=== PATIENT | female | born 1990 | race Caucasian/White ===

== ENCOUNTER 2019-01-15 05:39 | Inpatient (IN) | payer OTHER ==
[~2019-01-15 05:39] MED LIST: Nalbuphine 10 MG/1 ML Vial IVPUSH PRN; Sodium Chloride 0.9% 10 ML Syringe FLUSH PRN
[2019-01-15] MEDS ORDERED: Metoclopramide 10 MG/2 ML SDV IVPUSH ONE (06:00)
[2019-01-15] MEDS ORDERED: Citric Acid/Sodium Citrate Solution 30 ML Cup PO ONE (06:00)
[2019-01-15] MEDS: Lactated Ringers 1,000 ML IV SCH ×2 (06:45→09:05)
--- NOTE | 2019-01-15 06:47 | PCM.LDHP ---
L&D History of Present Illness - General Date of Service: 01/15/19 Admit Problem/Dx: Patient Status Order with Admit Dx/Problem 01/15/19 04:38 Patient Status [ADT] Routine Admission Diagnosis/Problem Admission Diagnosis/Problem Source of Information: Patient History Limitations: Reports: No Limitations - History of Present Illness Introduction:: Patient is a 28 y/o at 37 0/7 wks who presents for planned . Patient history notable for last affected by severe preeclampsia requiring IOL at 37 weeks. IOL went well with . However, patient with unknown history of HSV and at 4 weeks of life her son Jerome from HSV encephalitis. This has had development of gestational HTN. Has elected for PLTCS given she had no signs/symptoms of HSV she can recall with her last delivery or ever in the past. Feeling well today. No headaches, vision changes, or RUQ pain - Related Data Allergies/Adverse Reactions: Allergies Allergy/AdvReac Type Severity Reaction Status Date / Time No Known Allergies Allergy Verified 01/10/19 13:44 Home Medications: Home Meds Acyclovir 400 mg PO DAILY 01/10/19 [History] Mv-Mn/Iron/FA/Herbal/Digestive [ One Tablet] 1 tab PO DAILY 01/10/19 [ History] Past Medical History Gastrointestinal History: Reports: Pancreatitis HOSPITALITY HOST History: Reports: , Spontaneous : 4 Para: 1 (0 living children) LMP (Approximate): - Infectious Disease History Infectious Disease History: Reports: Herpes - Past Surgical History Musculoskeletal Surgical History: Reports: Other (See Below) (cyst excision - left arm) Social & Family History - Tobacco Use Smoking Status *Q: Current Every Day Smoker - Alcohol Use Alcohol Use History: No - Recreational Drug Use Recreational Drug Use: No Drug Use in Last 12 Months: No Recreational Drug Use Comment: Remote history - last 2013 H&P Review of Systems - Review of Systems: Review Of Systems: See Below General: Reports: No Symptoms Pulmonary: Reports: No Symptoms Cardiovascular: Reports: No Symptoms Gastrointestinal: Reports: No Symptoms Genitourinary: Reports: No Symptoms Musculoskeletal: Reports: No Symptoms Psychiatric: Reports: No Symptoms Neurological: Reports: No Symptoms L&D Exam - Exam Exam: See Below - OB Specific Contraction Intensity: Irritability Movement: Active Heart Tones: Present Heart Tones per Min: 140 Heart Rate (FHR) Variability: Moderate (6-25 bmp) - Exam General: Alert, Oriented, Cooperative Lungs: Clear to Auscultation, Normal Respiratory Effort Cardiovascular: Regular Rate, Regular Rhythm GI/Abdominal Exam: Soft, Non-Tender Genitourinary: Normal external exam Extremities: Normal Inspection Skin: Warm, Dry, Intact - Patient Data Lab Results Last 24 hrs: Laboratory Results - last 24 hr 01/15/19 Range/Units 05:57 WBC 12.98 H (3.98-10.04) K/mm3 RBC 4.19 (3.98-5.22) M/mm3 Hgb 12.7 (11.2-15.7) gm/dl Hct 37.8 (34.1-44.9) % MCV 90.2 (79.4-94.8) fl MCH 30.3 (25.6-32.2) pg MCHC 33.6 (32.2-35.5) g/dl RDW Std Deviation 45.0 (36.4-46.3) fL Plt Count 156 L (182-369) K/mm3 MPV 11.6 (9.4-12.3) fl Neut % (Auto) 78.2 H (34.0-71.1) % Lymph % (Auto) 11.8 L (19.3-51.7) % [place] % (Auto) 8.7 (4.7-12.5) % Eos % (Auto) 0.5 L (0.7-5.8) Baso % (Auto) 0.1 (0.1-1.2) % Neut # (Auto) 10.16 H (1.56-6.13) K/mm3 Lymph # (Auto) 1.53 (1.18-3.74) K/mm3 [place] # (Auto) 1.13 H (0.24-0.36) K/mm3 Eos # (Auto) 0.06 (0.04-0.36) K/mm3 Baso # (Auto) 0.01 (0.01-0.08) K/mm3 Result Diagrams: 01/15/19 05:57 - Problem List (1) 37 weeks gestation of SNOMED Code(s): 13885944 ICD Code: Z3A.37 - 37 WEEKS GESTATION OF Status: Acute Current Visit: Yes (2) Gestational hypertension SNOMED Code(s): 293400371 ICD Code: O13.9 - GESTATIONAL HTN W/O SIGNIFICANT PROTEINURIA, UNSP TRIMESTER Status: Acute Current Visit: Yes Qualifiers: Trimester: third trimester Qualified Code(s): O13.3 - Gestational [ -induced] hypertension without significant proteinuria, third trimester (3) GBS (group B Streptococcus carrier), +RV culture, currently SNOMED Code(s): 7165382712333, 672953372, 4767593877990 ICD Code: O99.820 - STREPTOCOCCUS B CARRIER STATE COMPLICATING Status: Acute Current Visit: Yes Problem List Initiated/Reviewed/Updated: Yes Orders Last 24hrs: Active Orders 24 hr Category Date Time Status Patient Status [ADT] Routine ADT 01/15/19 04:38 Active Communication Order [RC] ROUTINE Care 01/15/19 04:38 Active Heart Tones [RC] PER UNIT ROUTINE Care 01/15/19 04:38 Active Non Stress Test [RC] PER UNIT ROUTINE Care 01/15/19 04:38 Active Peripheral IV Care [RC] . DIRECTED Care 01/15/19 04:42 Active Procedure Site Prep Instruct [RC] ASDIRECTED Care 01/15/19 04:38 Active Verify Patient Consent Obtain [RC] PER UNIT ROUTINE Care 01/15/19 04:38 Active Vital Signs [RC] PFP Care 01/15/19 04:38 Active RAPID PLASMA REAGIN,RPR [CHEM] Timed Lab 01/15/19 05:57 Received TYPE AND SCREEN [BBK] Timed Lab 01/15/19 05:57 Received Lactated Ringers [Ringers, Lactated] 1,000 ml Med 01/15/19 04:45 Active IV ASDIRECTED Nalbuphine [Nubain] Med 01/15/19 04:38 Active 10 mg IVPUSH Q2H PRN Oxytocin/Lactated Ringers [Pitocin in LR 10 Units/1,000 Med 01/15/19 07:30 Active ML] 10 unit in 1,000 ml IV ASDIRECTED Sodium Chloride 0.9% [Saline Flush] Med 01/15/19 04:38 Active 10 ml FLUSH ASDIRECTED PRN ceFAZolin [Ancef] 2 gm Med 01/15/19 07:00 Active Premix Bag 1 bag IV ONETIME Peripheral IV Insertion Adult [OM.PC] Routine Oth 01/15/19 04:38 Ordered Schedule Procedure [COMM] Per Unit Routine Oth 01/15/19 04:38 Ordered Resuscitation Status Routine Resus Stat 01/15/19 04:38 Ordered Medication Orders Cefazolin Sodium/Dextrose 2 gm (/ Premix) 50 mls @ 100 mls/hr IV ONETIME ONE Stop: 01/15/19 07:29 Lactated Ringer's (Ringers, Lactated) 1,000 mls @ 125 mls/hr IV ASDIRECTED [facility] Oxytocin/Lactated Ringer's (Pitocin In Lr 10 Units/1,000 Ml) 10 unit in 1,000 mls @ 100 mls/hr IV ASDIRECTED [facility]; Protocol Nalbuphine HCl (Nubain) 10 mg IVPUSH Q2H PRN PRN Reason: Pain Sodium Chloride (Saline Flush) 10 ml FLUSH ASDIRECTED PRN PRN Reason: Keep Vein Open Assessment/Plan Comment:: Admit for planned PLTCS * Labs * Yan FUENTES * Consent reviewed and signed * NPO
[2019-01-15] MEDS ORDERED: ceFAZolin 2 GM in Premix Bag 1 BAG IV ONE (07:00)
[2019-01-15] MEDS ORDERED: Morphine PF 10 MG/10 ML SDV ONE (07:14)
[2019-01-15] MEDS ORDERED: ceFAZolin 1 GM Vial ONE ×2 (07:14)
[2019-01-15] MEDS ORDERED: Phenylephrine 1% 10 MG/ML SDV ONE (07:14)
[2019-01-15] MEDS ORDERED: Lactated Ringers 1,000 ML ONE (07:19)
[2019-01-15] MEDS ORDERED: Oxytocin/Lactated Ringers 10 UNIT/1,000 ML BAG IV SCH (07:30)
--- NOTE | 2019-01-15 07:34 | PCM.PREANE ---
Preanesthetic Assessment - Procedure Proposed Procedure: C - section - Anesthesia/Transfusion/Family Hx Anesthesia History: Prior Anesthesia Without Reaction Family History of Anesthesia Reaction: No Transfusion History: No Prior Transfusion(s) - Review of Systems General: No Symptoms Pulmonary: No Symptoms Cardiovascular: Dyspnea on Exertion Gastrointestinal: No Symptoms Neurological: No Symptoms Other: Reports: None - Physical Assessment NPO Status Date: 01/14/19 NPO Status Time: 00:00 Vital Signs: Last Vital Signs Temp 37.4 C 01/15/19 07:02 Pulse 115 H 01/15/19 07:02 Resp 15 01/15/19 07:02 BP 141/92 H 01/15/19 07:02 Pulse Ox 97 01/15/19 07:02 Height: 1.65 m Weight: 75.75 kg ASA Class: 2 Mental Status: Alert & Oriented x3 Airway Class: Mallampati = 2 Dentition: Reports: Normal Dentition Thyro-Mental Finger Breadths: 3 Mouth Opening Finger Breadths: 3 ROM/Head Extension: Full Lungs: Clear to Auscultation, Normal Respiratory Effort Cardiovascular: Regular Rate, Regular Rhythm, Murmurs - Lab Values: Laboratory Last Values WBC 12.98 K/mm3 (3.98-10.04) H 01/15/19 05:57 RBC 4.19 M/mm3 (3.98-5.22) 01/15/19 05:57 Hgb 12.7 gm/dl (11.2-15.7) 01/15/19 05:57 Hct 37.8 % (34.1-44.9) 01/15/19 05:57 MCV 90.2 fl (79.4-94.8) 01/15/19 05:57 MCH 30.3 pg (25.6-32.2) 01/15/19 05:57 MCHC 33.6 g/dl (32.2-35.5) 01/15/19 05:57 RDW Std Deviation 45.0 fL (36.4-46.3) 01/15/19 05:57 Plt Count 156 K/mm3 (182-369) L 01/15/19 05:57 MPV 11.6 fl (9.4-12.3) 01/15/19 05:57 Neut % (Auto) 78.2 % (34.0-71.1) H 01/15/19 05:57 Lymph % (Auto) 11.8 % (19.3-51.7) L 01/15/19 05:57 [place] % (Auto) 8.7 % (4.7-12.5) 01/15/19 05:57 Eos % (Auto) 0.5 (0.7-5.8) L 01/15/19 05:57 Baso % (Auto) 0.1 % (0.1-1.2) 01/15/19 05:57 Neut # (Auto) 10.16 K/mm3 (1.56-6.13) H 01/15/19 05:57 Lymph # (Auto) 1.53 K/mm3 (1.18-3.74) 01/15/19 05:57 [place] # (Auto) 1.13 K/mm3 (0.24-0.36) H 01/15/19 05:57 Eos # (Auto) 0.06 K/mm3 (0.04-0.36) 01/15/19 05:57 Baso # (Auto) 0.01 K/mm3 (0.01-0.08) 01/15/19 05:57 Blood Type O POSITIVE 01/15/19 05:57 Gel Antibody Screen Negative 01/15/19 05:57 - Allergies Allergies/Adverse Reactions: Allergies Allergy/AdvReac Type Severity Reaction Status Date / Time No Known Allergies Allergy Verified 01/10/19 13:44 - Anesthesia Plan Pre-Op Medication Ordered: Antacids - Acknowledgements Anesthesia Type Planned: Spinal Pt an Appropriate Candidate for the Planned Anesthesia: Yes Alternatives and Risks of Anesthesia Discussed w Pt/Guardian: Yes Pt/Guardian Understands and Agrees with Anesthesia Plan: Yes PreAnesthesia Questionnaire Gastrointestinal History: Reports: GERD, Pancreatitis 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: , Spontaneous - Infectious Disease History Infectious Disease History: Reports: Herpes - Past Surgical History Musculoskeletal Surgical History: Reports: Other (See Below) (cyst excision - left arm) - SUBSTANCE USE Smoking Status *Q: Current Every Day Smoker Tobacco Use Within Last Twelve Months: No Second Hand Smoke Exposure: No Days Per Week of Alcohol Use: 0 Number of Drinks Per Day: 0 Total Drinks Per Week: 0 Recreational Drug Use History: No - HOME MEDS Home Medications: Home Meds Acyclovir 400 mg PO DAILY 01/10/19 [History] Mv-Mn/Iron/FA/Herbal/Digestive [ One Tablet] 1 tab PO DAILY 01/10/19 [ History] - CURRENT (IN HOUSE) MEDS Current Meds: Current Medications Lactated Ringer's (Ringers, Lactated) 1,000 mls @ 125 mls/hr IV ASDIRECTED [facility] Last Admin: 01/15/19 06:45 Dose: 999 mls/hr Oxytocin/Lactated Ringer's (Pitocin In Lr 10 Units/1,000 Ml) 10 unit in 1,000 mls @ 100 mls/hr IV ASDIRECTED [facility]; Protocol Nalbuphine HCl (Nubain) 10 mg IVPUSH Q2H PRN PRN Reason: Pain Sodium Chloride (Saline Flush) 10 ml FLUSH ASDIRECTED PRN PRN Reason: Keep Vein Open Discontinued Medications Cefazolin Sodium (Ancef) Confirm Administered Dose 2 gm .ROUTE .STK-MED ONE Stop: 01/15/19 07:15 Cefazolin Sodium (Ancef) Confirm Administered Dose 2 gm .ROUTE .STK-MED ONE Stop: 01/15/19 07:15 Citric Acid/Sodium Citrate (Bicitra Solution) 30 ml PO ONETIME ONE Stop: 01/15/19 06:01 Last Admin: 01/15/19 07:21 Dose: 30 ml Cefazolin Sodium/Dextrose 2 gm (/ Premix) 50 mls @ 100 mls/hr IV ONETIME ONE Stop: 01/15/19 07:29 Lactated Ringer's (Ringers, Lactated) Confirm Administered Dose 1,000 mls @ as directed .ROUTE .STK-MED ONE Stop: 01/15/19 07:20 Metoclopramide HCl (Reglan) 10 mg IVPUSH ONETIME ONE Stop: 01/15/19 06:01 Last Admin: 01/15/19 07:20 Dose: 10 mg Morphine Sulfate (Duramorph Pf) Confirm Administered Dose 10 mg .ROUTE .STK-MED ONE Stop: 01/15/19 07:15 Phenylephrine HCl (Goyo-Synephrine) Confirm Administered Dose 10 mg .ROUTE .STK- MED ONE Stop: 01/15/19 07:15
[2019-01-15] MEDS ORDERED: Bupivacaine 0.75%/D5W 2 ML Amp ONE (07:47)
[2019-01-15] MEDS ORDERED: Ketorolac 30 MG/ML SDV ONE (08:05)
[2019-01-15] MEDS ORDERED: Oxytocin 10 Units/1 ML SDV ONE (08:05)
[2019-01-15] MEDS ORDERED: fentaNYL 100 MCG/2 ML SDV ONE (08:15)
--- NOTE | 2019-01-15 08:41 | PCM.OPNOTE ---
- General Post-Op/Procedure Note Date of Surgery/Procedure: 01/15/19 Operative Procedure(s): Primary low transverse Findings: Baby boy in vertex presentation. Weight of 6 lbs 5 oz. APGARS of 9 & 9. Normal appearance of the uterus, fallopian tubes, and ovaries. Pre Op Diagnosis: 37 0/7 wks gestation. Gestational HTN. Hx of HSV2 seropositivity Post-Op Diagnosis: Same Anesthesia Technique: Spinal Primary Surgeon: Arabella Medley Secondary Surgeon: Vinicius Slaughter Anesthesia Provider: Ran Montero Reason Eight Arm Operator Was Necessary: Speed/safety of procedure Pathology: Cord blood collected. Placenta discarded. Fluid Replacement, Intraop: 2,800 Output, Urine Amount: 225 EBL in mLs: 900 Complications: None Condition: Good Free Text/Narrative:: The risks, benefits, indications, potential complications, and alternatives were explained to the patient and informed consent obtained. After induction of anesthesia, the patient was placed in a supine position and then draped and prepped in the usual sterile manner. A Pfannenstiel incision was made and carried down through the subcutaneous tissue to the fascia. Fascial incision was made and extended transversely. The fascia was from the underlying rectus tissue superiorly and inferiorly. The peritoneum was identified and entered. Peritoneal incision was extended longitudinally. The utero-vesical peritoneal reflection was incised transversely and the bladder flap was bluntly freed from the lower uterine segment. A low transverse uterine incision was made sharply with a scalpel and extended bluntly in a cephalocaudad direction. A baby boy was delivered from a vertex presentation with APGARS as above. After the umbilical cord was clamped and cut cord blood was obtained for evaluation. The placenta was removed intact and appeared normal. The uterus was exteriorized and cleared of clots. The uterine outline, tubes and ovaries appeared normal. The uterine incision was closed with running locked sutures of 0 Vicryl. Hemostasis was obtained with a second imbricating layer of 0 vicryl. The uterus was then placed back into the abdomen. The infracolic gutters were cleared of blood clots. The fascia was then reapproximated with running sutures of 0 Vicryl. The subcutaneous tissue was irrigated with sterile warm normal saline, hemostasis obtained with cautery. This layer was closed with a running 0 vicryl. The skin was reapproximated with running Subcuticular 4-0 monocryl sutures. Instrument, sponge, and needle counts were correct prior the abdominal closure and at the conclusion of the case.
--- NOTE | 2019-01-15 08:42 | PCM.POSTAN ---
POST ANESTHESIA ASSESSMENT - MENTAL STATUS Mental Status: Alert, Oriented - VITAL SIGNS Vital Signs: Last Vital Signs Temp 37.4 C 01/15/19 07:02 Pulse 115 H 01/15/19 07:02 Resp 15 01/15/19 07:02 BP 141/92 H 01/15/19 07:02 Pulse Ox 97 01/15/19 07:02 - RESPIRATORY Respiratory Status: Respiratory Rate WNL, Airway Patent, O2 Saturation Stable - CARDIOVASCULAR CV Status: Pulse Rate WNL, Blood Pressure Stable - GASTROINTESTINAL GI Status: No Symptoms - PAIN Pain Score: 0 - POST OP HYDRATION Hydration Status: Adequate & Stable - OBSERVATIONS Free Text/Narrative:: no anesthesia complications noted
[2019-01-15] MEDS ORDERED: Ibuprofen 600 MG Tab PO PRN (09:39)
[2019-01-15] MEDS ORDERED: Ondansetron 4 MG/2 ML SDV IV PRN (09:39)
[2019-01-15] MEDS ORDERED: Naloxone 0.4 MG/ML SDV IVPUSH PRN (09:39)
[2019-01-15] MEDS ORDERED: Dextrose 5%-Lactated Ringers 1,000 ML IV SCH (09:39)
[2019-01-15] MEDS ORDERED: diphenhydrAMINE 50 MG/ML SDV IVPUSH PRN (12:10)
[2019-01-15] MEDS: Ketorolac 30 MG/ML SDV IVPUSH SCH ×2 (14:39→20:38)
[2019-01-15] MEDS: Acetaminophen/oxyCODONE 325-5 MG Tab PO PRN ×2 (17:22→21:10)
[2019-01-15] MEDS: Docusate Sodium 100 MG Cap PO PRN (20:38)
[2019-01-16] MEDS: Ketorolac 30 MG/ML SDV IVPUSH SCH (03:09)
--- NOTE | 2019-01-16 06:52 | PCM.PNPP ---
- General Info Date of Service: 01/16/19 Functional Status: Reports: Pain Controlled, Tolerating Diet, Ambulating, Urinating - Review of Systems General: Reports: No Symptoms Pulmonary: Reports: No Symptoms Cardiovascular: Reports: No Symptoms Gastrointestinal: Reports: Abdominal Pain (managed with medications ) Genitourinary: Reports: No Symptoms Musculoskeletal: Reports: No Symptoms Neurological: Reports: No Symptoms - Patient Data Vital Signs - Most Recent: Last Vital Signs Temp 37.0 C 01/15/19 20:00 Pulse 77 01/16/19 03:08 Resp 15 01/16/19 04:00 BP 134/82 01/16/19 03:08 Pulse Ox 99 01/16/19 04:00 Weight - Most Recent: 75.75 kg I&O - Last 24 Hours: Intake & Output 01/15/19 01/15/19 01/16/19 14:59 22:59 06:59 Intake Total 3170 Output Total 399 003 2471 Balance 0765 -875 -1100 Lab Results - Last 24 Hours: Laboratory Results - last 24 hr 01/15/19 01/15/19 01/15/19 Range/Units 05:52 05:57 05:57 WBC (3.98-10.04) K/mm3 RBC (3.98-5.22) M/mm3 Hgb (11.2-15.7) gm/dl Hct (34.1-44.9) % MCV (79.4-94.8) fl MCH (25.6-32.2) pg MCHC (32.2-35.5) g/dl RDW Std Deviation (36.4-46.3) fL Plt Count (182-369) K/mm3 MPV (9.4-12.3) fl Creatinine 0.6 (0.55-1.02) mg/dL Est Cr Clr Drug Dosing 126.73 mL/min Estimated GFR (MDRD) > 60 (>60) mL/min AST 21 (15-37) U/L ALT 19 (14-59) U/L RPR Non-reactive (NONREACTIVE) Blood Type O POSITIVE Gel Antibody Screen Negative 01/16/19 Range/Units 05:21 WBC 11.68 H (3.98-10.04) K/mm3 RBC 3.56 L (3.98-5.22) M/mm3 Hgb 10.8 L D (11.2-15.7) gm/dl Hct 32.6 L (34.1-44.9) % MCV 91.6 (79.4-94.8) fl MCH 30.3 (25.6-32.2) pg MCHC 33.1 (32.2-35.5) g/dl RDW Std Deviation 46.4 H (36.4-46.3) fL Plt Count 132 L (182-369) K/mm3 MPV 11.6 (9.4-12.3) fl Creatinine (0.55-1.02) mg/dL Est Cr Clr Drug Dosing mL/min Estimated GFR (MDRD) (>60) mL/min AST (15-37) U/L ALT (14-59) U/L RPR (NONREACTIVE) Blood Type Gel Antibody Screen Med Orders - Current: Current Medications Diphenhydramine HCl (Benadryl) 25 mg IVPUSH Q8H PRN PRN Reason: Itching Last Admin: 01/15/19 12:15 Dose: 25 mg Docusate Sodium (Colace) 100 mg PO Q12H PRN PRN Reason: Constipation Last Admin: 01/15/19 20:38 Dose: 100 mg Ibuprofen (Motrin) 600 mg PO Q6H PRN PRN Reason: mild pain or fever Naloxone HCl (Narcan) 0.1 mg IVPUSH SEECOMMENT PRN PRN Reason: Respiratory Depression Ondansetron HCl (Zofran) 4 mg IV Q8H PRN PRN Reason: Nausea/Vomiting Oxycodone/Acetaminophen (Percocet 325-5 Mg) 2 tab PO Q4H PRN PRN Reason: Pain (moderate 4-6) Last Admin: 01/15/19 21:10 Dose: 2 tab Discontinued Medications Bupivacaine HCl/Dextrose (Marcaine 0.75% Spinal) Confirm Administered Dose 2 ml .ROUTE .STK-MED ONE Stop: 01/15/19 07:48 Cefazolin Sodium (Ancef) Confirm Administered Dose 2 gm .ROUTE .STK-MED ONE Stop: 01/15/19 07:15 Cefazolin Sodium (Ancef) Confirm Administered Dose 2 gm .ROUTE .STK-MED ONE Stop: 01/15/19 07:15 Citric Acid/Sodium Citrate (Bicitra Solution) 30 ml PO ONETIME ONE Stop: 01/15/19 06:01 Last Admin: 01/15/19 07:21 Dose: 30 ml Fentanyl (Sublimaze) Confirm Administered Dose 100 mcg .ROUTE .STK-MED ONE Stop: 01/15/19 08:16 Cefazolin Sodium/Dextrose 2 gm (/ Premix) 50 mls @ 100 mls/hr IV ONETIME ONE Stop: 01/15/19 07:29 Last Admin: 01/15/19 14:40 Dose: Not Given Lactated Ringer's (Ringers, Lactated) 1,000 mls @ 125 mls/hr IV ASDIRECTED [facility] Last Admin: 01/15/19 09:05 Dose: 125 mls/hr Oxytocin/Lactated Ringer's (Pitocin In Lr 10 Units/1,000 Ml) 10 unit in 1,000 mls @ 100 mls/hr IV ASDIRECTED [facility]; Protocol Lactated Ringer's (Ringers, Lactated) Confirm Administered Dose 1,000 mls @ as directed .ROUTE .STK-MED ONE Stop: 01/15/19 07:20 Dextrose/Lactated Ringer's (Dextrose 5%-Lactated Ringers) 1,000 mls @ 125 mls/ hr IV ASDIRECTED [facility] Stop: 01/15/19 17:38 Last Admin: 01/15/19 11:02 Dose: 125 mls/hr Ketorolac Tromethamine (Toradol) Confirm Administered Dose 30 mg .ROUTE .STK- MED ONE Stop: 01/15/19 08:06 Ketorolac Tromethamine (Toradol) 30 mg IVPUSH Q6H [facility] Stop: 01/16/19 02:31 Last Admin: 01/16/19 03:09 Dose: 30 mg Lidocaine HCl (Xylocaine-Mpf 1%) Confirm Administered Dose 5 ml .ROUTE .STK-MED ONE Stop: 01/15/19 07:48 Metoclopramide HCl (Reglan) 10 mg IVPUSH ONETIME ONE Stop: 01/15/19 06:01 Last Admin: 01/15/19 07:20 Dose: 10 mg Morphine Sulfate (Duramorph Pf) Confirm Administered Dose 10 mg .ROUTE .STK-MED ONE Stop: 01/15/19 07:15 Nalbuphine HCl (Nubain) 10 mg IVPUSH Q2H PRN PRN Reason: Pain Oxytocin (Pitocin) Confirm Administered Dose 10 unit .ROUTE .STK-MED ONE Stop: 01/15/19 08:06 Phenylephrine HCl (Goyo-Synephrine) Confirm Administered Dose 10 mg .ROUTE .STK- MED ONE Stop: 01/15/19 07:15 Sodium Chloride (Saline Flush) 10 ml FLUSH ASDIRECTED PRN PRN Reason: Keep Vein Open - Interaction Disposition, : in Room with Family Infant Interaction: Holding Infant Infant Feeding: Other (see below) (pumping) Support Person: , Mother - Recovery Exam Fundal Tone: Firm Fundal Level: At Umbilicus Fundal Placement: Midline Lochia Amount: Small Lochia Color: Rubra/Red Perineum Description: Intact, Minimal Bruising/Swelling Episiotomy/Laceration: None Bladder Status: Voiding Urinary Elimination: Voided Other Urinary Elimination, : catheter removed - Exam General: Alert, Oriented, Cooperative Lungs: Normal Respiratory Effort, Wheezing (inspiratory wheeze in left / lower) GI/Abdominal Exam: Soft, Tender (appropriate post op) Extremities: Normal Inspection Skin: Warm, Dry, Intact Wound/Incisions: Healing Well, No Drainage - Problem List & Annotations (1) 37 weeks gestation of SNOMED Code(s): 07355098 Code(s): Z3A.37 - 37 WEEKS GESTATION OF Status: Acute Current Visit: Yes (2) Gestational hypertension SNOMED Code(s): 684276241 Code(s): O13.9 - GESTATIONAL HTN W/O SIGNIFICANT PROTEINURIA, UNSP TRIMESTER Status: Acute Current Visit: Yes Qualifiers: Trimester: third trimester Qualified Code(s): O13.3 - Gestational [ -induced] hypertension without significant proteinuria, third trimester (3) GBS (group B Streptococcus carrier), +RV culture, currently SNOMED Code(s): 4766940683939, 932884421, 8086955065121 Code(s): O99.820 - STREPTOCOCCUS B CARRIER STATE COMPLICATING Status: Acute Current Visit: Yes - Problem List Review Problem List Initiated/Reviewed/Updated: Yes - My Orders Last 24 Hours: My Active Orders 01/15/19 09:39 Activity as Tolerated [RC] .Routine Antiembolic Devices [RC] PER UNIT ROUTINE Communication Order [RC] PER UNIT ROUTINE Intake and Output [RC] Q4HR May Shower [RC] PER UNIT ROUTINE Notify Provider Intake and Out [RC] ASDIRECTED RT Incentive Spirometry [RC] Q2HWA Vital Signs [RC] Q1HR Acetaminophen/oxyCODONE [Percocet 325-5 MG] 2 tab PO Q4H PRN Docusate Sodium [Colace] 100 mg PO Q12H PRN Naloxone [Narcan] 0.1 mg IVPUSH SEECOMMENT PRN Ondansetron [Zofran] 4 mg IV Q8H PRN Assess Lochia [WOMSER] Per Unit Routine Assess Uterine Involution [WOMSER] Per Unit Routine Breast Pump [WOMSER] Per Unit Routine Heat Therapy [OM.PC] Per Unit Routine Peripheral IV Discontinue [OM.PC] Routine Sequential Compression Device [OM.PC] Per Unit Routine 01/15/19 12:10 diphenhydrAMINE [Benadryl] 25 mg IVPUSH Q8H PRN 01/15/19 Breakfast Regular Diet [DIET] 01/16/19 08:30 Ibuprofen [Motrin] 600 mg PO Q6H PRN - Assessment Assessment:: POD#1 - Plan Plan:: * Routine cares * Pumping currently, plans to breast feed once baby out of Level 2 nursery * Hb appropriate today * Discharge home in 2 days
[2019-01-16] MEDS: Acetaminophen/oxyCODONE 325-5 MG Tab PO PRN ×3 (07:38→21:16)
--- NOTE | 2019-01-16 08:35 | PCM48HPAN ---
Post Anesthesia Note - EVALUATION WITHIN 48HRS OF ANESTHETIC Vital Signs in Normal Range: Yes Patient Participated in Evaluation: Yes Respiratory Function Stable: Yes Airway Patent: Yes Cardiovascular Function Stable: Yes Hydration Status Stable: Yes Pain Control Satisfactory: Yes Nausea and Vomiting Control Satisfactory: Yes Mental Status Recovered: Yes Vital Signs: Last Vital Signs Temp 37.0 C 01/15/19 20:00 Pulse 77 01/16/19 03:08 Resp 15 01/16/19 07:00 BP 134/82 01/16/19 03:08 Pulse Ox 99 01/16/19 07:00
[2019-01-16] MEDS: Ibuprofen 600 MG Tab PO PRN (11:27)
[2019-01-16] MEDS: Docusate Sodium 100 MG Cap PO PRN (21:16)
[2019-01-17] MEDS: Ibuprofen 600 MG Tab PO PRN ×2 (02:34→12:52)
--- NOTE | 2019-01-17 07:07 | PCM.PNPP ---
- General Info Date of Service: 01/17/19 Functional Status: Reports: Pain Controlled, Tolerating Diet, Ambulating, Urinating - Review of Systems General: Reports: No Symptoms Pulmonary: Reports: No Symptoms Cardiovascular: Reports: No Symptoms Gastrointestinal: Reports: Abdominal Pain (managed wtih medications ) Genitourinary: Reports: No Symptoms Musculoskeletal: Reports: No Symptoms Neurological: Reports: No Symptoms - Patient Data Vital Signs - Most Recent: Last Vital Signs Temp 36.6 C 01/17/19 03:58 Pulse 79 01/17/19 03:58 Resp 15 01/17/19 03:58 BP 130/76 01/17/19 03:58 Pulse Ox 99 01/17/19 03:58 Weight - Most Recent: 75.75 kg Med Orders - Current: Current Medications Diphenhydramine HCl (Benadryl) 25 mg IVPUSH Q8H PRN PRN Reason: Itching Last Admin: 01/15/19 12:15 Dose: 25 mg Docusate Sodium (Colace) 100 mg PO Q12H PRN PRN Reason: Constipation Last Admin: 01/16/19 21:16 Dose: 100 mg Ibuprofen (Motrin) 600 mg PO Q6H PRN PRN Reason: mild pain or fever Last Admin: 01/17/19 02:34 Dose: 600 mg Naloxone HCl (Narcan) 0.1 mg IVPUSH SEECOMMENT PRN PRN Reason: Respiratory Depression Ondansetron HCl (Zofran) 4 mg IV Q8H PRN PRN Reason: Nausea/Vomiting Oxycodone/Acetaminophen (Percocet 325-5 Mg) 2 tab PO Q4H PRN PRN Reason: Pain (moderate 4-6) Last Admin: 01/16/19 21:16 Dose: 2 tab Discontinued Medications Bupivacaine HCl/Dextrose (Marcaine 0.75% Spinal) Confirm Administered Dose 2 ml .ROUTE .STK-MED ONE Stop: 01/15/19 07:48 Cefazolin Sodium (Ancef) Confirm Administered Dose 2 gm .ROUTE .STK-MED ONE Stop: 01/15/19 07:15 Cefazolin Sodium (Ancef) Confirm Administered Dose 2 gm .ROUTE .STK-MED ONE Stop: 01/15/19 07:15 Citric Acid/Sodium Citrate (Bicitra Solution) 30 ml PO ONETIME ONE Stop: 01/15/19 06:01 Last Admin: 01/15/19 07:21 Dose: 30 ml Fentanyl (Sublimaze) Confirm Administered Dose 100 mcg .ROUTE .STK-MED ONE Stop: 01/15/19 08:16 Cefazolin Sodium/Dextrose 2 gm (/ Premix) 50 mls @ 100 mls/hr IV ONETIME ONE Stop: 01/15/19 07:29 Last Admin: 01/15/19 14:40 Dose: Not Given Lactated Ringer's (Ringers, Lactated) 1,000 mls @ 125 mls/hr IV ASDIRECTED [facility] Last Admin: 01/15/19 09:05 Dose: 125 mls/hr Oxytocin/Lactated Ringer's (Pitocin In Lr 10 Units/1,000 Ml) 10 unit in 1,000 mls @ 100 mls/hr IV ASDIRECTED [facility]; Protocol Lactated Ringer's (Ringers, Lactated) Confirm Administered Dose 1,000 mls @ as directed .ROUTE .STK-MED ONE Stop: 01/15/19 07:20 Dextrose/Lactated Ringer's (Dextrose 5%-Lactated Ringers) 1,000 mls @ 125 mls/ hr IV ASDIRECTED [facility] Stop: 01/15/19 17:38 Last Admin: 01/15/19 11:02 Dose: 125 mls/hr Ketorolac Tromethamine (Toradol) Confirm Administered Dose 30 mg .ROUTE .STK- MED ONE Stop: 01/15/19 08:06 Ketorolac Tromethamine (Toradol) 30 mg IVPUSH Q6H [facility] Stop: 01/16/19 02:31 Last Admin: 01/16/19 03:09 Dose: 30 mg Lidocaine HCl (Xylocaine-Mpf 1%) Confirm Administered Dose 5 ml .ROUTE .STK-MED ONE Stop: 01/15/19 07:48 Metoclopramide HCl (Reglan) 10 mg IVPUSH ONETIME ONE Stop: 01/15/19 06:01 Last Admin: 01/15/19 07:20 Dose: 10 mg Morphine Sulfate (Duramorph Pf) Confirm Administered Dose 10 mg .ROUTE .STK-MED ONE Stop: 01/15/19 07:15 Nalbuphine HCl (Nubain) 10 mg IVPUSH Q2H PRN PRN Reason: Pain Oxytocin (Pitocin) Confirm Administered Dose 10 unit .ROUTE .STK-MED ONE Stop: 01/15/19 08:06 Phenylephrine HCl (Goyo-Synephrine) Confirm Administered Dose 10 mg .ROUTE .STK- MED ONE Stop: 01/15/19 07:15 Sodium Chloride (Saline Flush) 10 ml FLUSH ASDIRECTED PRN PRN Reason: Keep Vein Open - Interaction Infant Disposition, : in Room with Family Infant Interaction: Holding Feeding: Attempted ; Nursed Fair/Poor, Bottle Fed Support Person: , Mother - Recovery Exam Fundal Tone: Firm Fundal Level: 1 Fingerbreadths Below Umbilicus Fundal Placement: Midline Lochia Amount: Scant Lochia Color: Rubra/Red Perineum Description: Intact, Minimal Bruising/Swelling Episiotomy/Laceration: None Bladder Status: Voiding Urinary Elimination: Voided Other Urinary Elimination, : catheter removed - Exam General: Alert, Oriented, Cooperative Lungs: Clear to Auscultation, Normal Respiratory Effort Cardiovascular: Regular Rate, Regular Rhythm GI/Abdominal Exam: Soft, Tender (appropriate post op ) Extremities: Normal Inspection Skin: Warm, Dry, Intact Wound/Incisions: Healing Well, No Drainage - Problem List & Annotations (1) 37 weeks gestation of SNOMED Code(s): 08584860 Code(s): Z3A.37 - 37 WEEKS GESTATION OF Status: Acute Current Visit: Yes (2) Gestational hypertension SNOMED Code(s): 971032391 Code(s): O13.9 - GESTATIONAL HTN W/O SIGNIFICANT PROTEINURIA, UNSP TRIMESTER Status: Acute Current Visit: Yes Qualifiers: Trimester: third trimester Qualified Code(s): O13.3 - Gestational [ -induced] hypertension without significant proteinuria, third trimester (3) GBS (group B Streptococcus carrier), +RV culture, currently SNOMED Code(s): 8394072618181, 088134072, 1519375565217 Code(s): O99.820 - STREPTOCOCCUS B CARRIER STATE COMPLICATING Status: Acute Current Visit: Yes (4) HSV-2 seropositive SNOMED Code(s): 506098797, 213638687 Code(s): R76.8 - OTHER SPECIFIED ABNORMAL IMMUNOLOGICAL FINDINGS IN SERUM Status: Acute Current Visit: Yes (5) S/P section SNOMED Code(s): 891701618, 557181190 Code(s): Z98.891 - HISTORY OF UTERINE SCAR FROM PREVIOUS SURGERY Status: Acute Current Visit: Yes - Problem List Review Problem List Initiated/Reviewed/Updated: Yes - My Orders Last 24 Hours: My Active Orders 01/16/19 08:30 Ibuprofen [Motrin] 600 mg PO Q6H PRN - Assessment Assessment:: POD#2 - Plan Plan:: * Routine cares * Breast and bottle feeding * BP's normal to mild range after delivery. Continue to monitor closely * Discharge home tomorrow
[2019-01-17] MEDS: Docusate Sodium 100 MG Cap PO PRN ×2 (08:10→19:52)
[2019-01-17] MEDS: Acetaminophen/oxyCODONE 325-5 MG Tab PO PRN ×3 (08:10→19:49)
[2019-01-17] MEDS ORDERED: Zolpidem 5 MG Tab PO PRN (17:58)
[2019-01-17] MEDS ORDERED: diphenhydrAMINE 50 MG Cap PO PRN (17:59)
[2019-01-18] MEDS: Acetaminophen/oxyCODONE 325-5 MG Tab PO PRN (06:48)
--- NOTE | 2019-01-18 07:13 | PCM.PNPP ---
- General Info Date of Service: 01/18/19 Functional Status: Reports: Pain Controlled, Tolerating Diet, Ambulating, Urinating - Review of Systems General: Reports: No Symptoms Pulmonary: Reports: No Symptoms Cardiovascular: Reports: No Symptoms Gastrointestinal: Reports: Abdominal Pain Genitourinary: Reports: No Symptoms Musculoskeletal: Reports: No Symptoms Psychiatric: Reports: Mood Lability - Patient Data Vital Signs - Most Recent: Last Vital Signs Temp 36.5 C 01/18/19 03:06 Pulse 72 01/18/19 03:06 Resp 13 01/18/19 03:06 BP 140/64 01/18/19 03:06 Pulse Ox 99 01/18/19 03:06 Weight - Most Recent: 75.75 kg Med Orders - Current: Current Medications Diphenhydramine HCl (Benadryl) 50 mg PO BEDTIME PRN PRN Reason: Insomnia Docusate Sodium (Colace) 100 mg PO Q12H PRN PRN Reason: Constipation Last Admin: 01/17/19 19:52 Dose: 100 mg Ibuprofen (Motrin) 600 mg PO Q6H PRN PRN Reason: mild pain or fever Last Admin: 01/17/19 12:52 Dose: 600 mg Naloxone HCl (Narcan) 0.1 mg IVPUSH SEECOMMENT PRN PRN Reason: Respiratory Depression Ondansetron HCl (Zofran) 4 mg IV Q8H PRN PRN Reason: Nausea/Vomiting Oxycodone/Acetaminophen (Percocet 325-5 Mg) 2 tab PO Q4H PRN PRN Reason: Pain (moderate 4-6) Last Admin: 01/18/19 06:48 Dose: 2 tab Zolpidem Tartrate (Ambien) 5 mg PO BEDTIME PRN PRN Reason: Insomnia Last Admin: 01/17/19 19:49 Dose: 5 mg Discontinued Medications Bupivacaine HCl/Dextrose (Marcaine 0.75% Spinal) Confirm Administered Dose 2 ml .ROUTE .STK-MED ONE Stop: 01/15/19 07:48 Cefazolin Sodium (Ancef) Confirm Administered Dose 2 gm .ROUTE .STK-MED ONE Stop: 01/15/19 07:15 Cefazolin Sodium (Ancef) Confirm Administered Dose 2 gm .ROUTE .STK-MED ONE Stop: 01/15/19 07:15 Citric Acid/Sodium Citrate (Bicitra Solution) 30 ml PO ONETIME ONE Stop: 01/15/19 06:01 Last Admin: 01/15/19 07:21 Dose: 30 ml Diphenhydramine HCl (Benadryl) 25 mg IVPUSH Q8H PRN PRN Reason: Itching Last Admin: 01/15/19 12:15 Dose: 25 mg Fentanyl (Sublimaze) Confirm Administered Dose 100 mcg .ROUTE .STK-MED ONE Stop: 01/15/19 08:16 Cefazolin Sodium/Dextrose 2 gm (/ Premix) 50 mls @ 100 mls/hr IV ONETIME ONE Stop: 01/15/19 07:29 Last Admin: 01/15/19 14:40 Dose: Not Given Lactated Ringer's (Ringers, Lactated) 1,000 mls @ 125 mls/hr IV ASDIRECTED [facility] Last Admin: 01/15/19 09:05 Dose: 125 mls/hr Oxytocin/Lactated Ringer's (Pitocin In Lr 10 Units/1,000 Ml) 10 unit in 1,000 mls @ 100 mls/hr IV ASDIRECTED [facility]; Protocol Lactated Ringer's (Ringers, Lactated) Confirm Administered Dose 1,000 mls @ as directed .ROUTE .STK-MED ONE Stop: 01/15/19 07:20 Dextrose/Lactated Ringer's (Dextrose 5%-Lactated Ringers) 1,000 mls @ 125 mls/ hr IV ASDIRECTED [facility] Stop: 01/15/19 17:38 Last Admin: 01/15/19 11:02 Dose: 125 mls/hr Ketorolac Tromethamine (Toradol) Confirm Administered Dose 30 mg .ROUTE .STK- MED ONE Stop: 01/15/19 08:06 Ketorolac Tromethamine (Toradol) 30 mg IVPUSH Q6H [facility] Stop: 01/16/19 02:31 Last Admin: 01/16/19 03:09 Dose: 30 mg Lidocaine HCl (Xylocaine-Mpf 1%) Confirm Administered Dose 5 ml .ROUTE .STK-MED ONE Stop: 01/15/19 07:48 Metoclopramide HCl (Reglan) 10 mg IVPUSH ONETIME ONE Stop: 01/15/19 06:01 Last Admin: 01/15/19 07:20 Dose: 10 mg Morphine Sulfate (Duramorph Pf) Confirm Administered Dose 10 mg .ROUTE .STK-MED ONE Stop: 01/15/19 07:15 Nalbuphine HCl (Nubain) 10 mg IVPUSH Q2H PRN PRN Reason: Pain Oxytocin (Pitocin) Confirm Administered Dose 10 unit .ROUTE .STK-MED ONE Stop: 01/15/19 08:06 Phenylephrine HCl (Goyo-Synephrine) Confirm Administered Dose 10 mg .ROUTE .STK- MED ONE Stop: 01/15/19 07:15 Sodium Chloride (Saline Flush) 10 ml FLUSH ASDIRECTED PRN PRN Reason: Keep Vein Open - Infant Interaction Infant Disposition, : in Room with Family Interaction: Holding Infant Feeding: Attempted ; Nursed Fair/Poor, Bottle Fed Support Person: , Mother - Recovery Exam Fundal Tone: Firm Fundal Level: 1 Fingerbreadths Below Umbilicus Fundal Placement: Midline Lochia Amount: Scant Lochia Color: Rubra/Red Perineum Description: Intact, Minimal Bruising/Swelling Episiotomy/Laceration: None Bladder Status: Voiding Urinary Elimination: Voided Other Urinary Elimination, : catheter removed - Exam General: Alert, Oriented, Cooperative Lungs: Clear to Auscultation, Normal Respiratory Effort Cardiovascular: Regular Rate, Regular Rhythm GI/Abdominal Exam: Soft, Tender (appropriate ) Skin: Warm, Dry, Intact Wound/Incisions: Healing Well, No Drainage - Problem List & Annotations (1) 37 weeks gestation of SNOMED Code(s): 56406688 Code(s): Z3A.37 - 37 WEEKS GESTATION OF Status: Acute Current Visit: Yes (2) Gestational hypertension SNOMED Code(s): 738030453 Code(s): O13.9 - GESTATIONAL HTN W/O SIGNIFICANT PROTEINURIA, UNSP TRIMESTER Status: Acute Current Visit: Yes Qualifiers: Trimester: third trimester Qualified Code(s): O13.3 - Gestational [ -induced] hypertension without significant proteinuria, third trimester (3) GBS (group B Streptococcus carrier), +RV culture, currently SNOMED Code(s): 7788384753799, 008677188, 5313141663355 Code(s): O99.820 - STREPTOCOCCUS B CARRIER STATE COMPLICATING Status: Acute Current Visit: Yes (4) HSV-2 seropositive SNOMED Code(s): 141543416, 842574417 Code(s): R76.8 - OTHER SPECIFIED ABNORMAL IMMUNOLOGICAL FINDINGS IN SERUM Status: Acute Current Visit: Yes (5) S/P section SNOMED Code(s): 505527481, 969849749 Code(s): Z98.891 - HISTORY OF UTERINE SCAR FROM PREVIOUS SURGERY Status: Acute Current Visit: Yes - Problem List Review Problem List Initiated/Reviewed/Updated: Yes - My Orders Last 24 Hours: My Active Orders 01/17/19 17:58 Zolpidem [Ambien] 5 mg PO BEDTIME PRN 01/17/19 17:59 diphenhydrAMINE [Benadryl] 50 mg PO BEDTIME PRN 01/18/19 07:12 Ready for Discharge [RC] PER UNIT ROUTINE - Assessment Assessment:: POD#3 - Plan Plan:: * Routine cares * Breast and bottle feeding * BP's normal to mild range after delivery. will have return in 1 week for BP check in office * Discussed mood today and patient prefers to monitor. If any acute worsening will reach out to us in the office * Discharge home today
--- NOTE | 2019-01-18 07:13 | PCM.DCSUM1 ---
Discharge Summary - Discharge Data Discharge Date: 01/18/19 Discharge Disposition: Home, Self-Care 01 Condition: Good - Referral to Home Health Primary Care Physician: Arabella Medley MD - Discharge Diagnosis/Problem(s) (1) 37 weeks gestation of SNOMED Code(s): 95991668 ICD Code: Z3A.37 - 37 WEEKS GESTATION OF Status: Acute (2) Gestational hypertension SNOMED Code(s): 801809762 ICD Code: O13.9 - GESTATIONAL HTN W/O SIGNIFICANT PROTEINURIA, UNSP TRIMESTER Status: Acute Qualifiers: Trimester: third trimester Qualified Code(s): O13.3 - Gestational [ -induced] hypertension without significant proteinuria, third trimester (3) GBS (group B Streptococcus carrier), +RV culture, currently SNOMED Code(s): 3322266606336, 077127002, 4650175093553 ICD Code: O99.820 - STREPTOCOCCUS B CARRIER STATE COMPLICATING Status: Acute (4) HSV-2 seropositive SNOMED Code(s): 372054765, 753048698 ICD Code: R76.8 - OTHER SPECIFIED ABNORMAL IMMUNOLOGICAL FINDINGS IN SERUM Status: Acute (5) S/P section SNOMED Code(s): 292002208, 859104232 ICD Code: Z98.891 - HISTORY OF UTERINE SCAR FROM PREVIOUS SURGERY Status: Acute - Patient Summary/Data Operative Procedure(s) Performed: Primary low transverse Complications: None Consults: None Recommended Follow-up Testing/Procedures: Follow up in 1 week for BP and incision check Hospital Course: Patient is a 28 y/o at 37 0/7 wks who presents for planned PLTCS. Surgery to be done for history of prior unknown HSV and baby with HSV encephalitis. Delivery done at 37 weeks for gestational HTN. Surgery was uncomplicated. See delivery note. patient did well. BP's normal to mild range. Meeting all goals. Discharged home on POD#3 - Patient Instructions Diet: Regular Diet as Tolerated Activity: No Lifting Over 10 Pounds Activity, Other: Pelvic rest for 6 weeks Driving: Do Not Drive (While taking narcotics ) Showering/Bathing: May Shower, No Tub Bathing/Swimming Wound/Incision Care: Keep Operative Site/Wound Site Clean and Dry Notify Provider of: Fever, Increased Pain, Swelling and Redness, Drainage, Nausea and/or Vomiting - Discharge Plan *PRESCRIPTION DRUG MONITORING PROGRAM REVIEWED*: No *COPY OF PRESCRIPTION DRUG MONITORING REPORT IN PATIENT RAINER: No Prescriptions/Med Rec: Acetaminophen/oxyCODONE [Percocet 325-5 MG] 1 - 2 tab PO Q4H PRN #20 tablet PRN Reason: Pain (Moderate 4-6) Zolpidem [Ambien] 5 mg PO BEDTIME PRN #15 tablet PRN Reason: Insomnia Home Medications: Home Meds Mv-Mn/Iron/FA/Herbal/Digestive [ One Tablet] 1 tab PO DAILY 01/10/19 [ History] Acetaminophen/oxyCODONE [Percocet 325-5 MG] 1 - 2 tab PO Q4H PRN #20 tablet 07/02 [Rx] Docusate Sodium [Colace] 100 mg PO Q12H PRN cap 01/18/19 [Rx] Ibuprofen [Motrin] 600 mg PO Q6H PRN tablet 01/18/19 [Rx] Zolpidem [Ambien] 5 mg PO BEDTIME PRN #15 tablet 01/18/19 [Rx] Patient Handouts: Delivery, Care After, Steps to Quit Smoking Referrals: Arabella Medley MD [Primary Care Provider] - (1 week for incision / BP check ) - Discharge Summary/Plan Comment DC Time >30 min.: No - Patient Data Vitals - Most Recent: Last Vital Signs Temp 36.5 C 01/18/19 03:06 Pulse 72 01/18/19 03:06 Resp 13 01/18/19 03:06 BP 140/64 01/18/19 03:06 Pulse Ox 99 01/18/19 03:06 Weight - Most Recent: 75.75 kg Med Orders - Current: Current Medications Diphenhydramine HCl (Benadryl) 50 mg PO BEDTIME PRN PRN Reason: Insomnia Docusate Sodium (Colace) 100 mg PO Q12H PRN PRN Reason: Constipation Last Admin: 01/17/19 19:52 Dose: 100 mg Ibuprofen (Motrin) 600 mg PO Q6H PRN PRN Reason: mild pain or fever Last Admin: 01/17/19 12:52 Dose: 600 mg Naloxone HCl (Narcan) 0.1 mg IVPUSH SEECOMMENT PRN PRN Reason: Respiratory Depression Ondansetron HCl (Zofran) 4 mg IV Q8H PRN PRN Reason: Nausea/Vomiting Oxycodone/Acetaminophen (Percocet 325-5 Mg) 2 tab PO Q4H PRN PRN Reason: Pain (moderate 4-6) Last Admin: 01/18/19 06:48 Dose: 2 tab Zolpidem Tartrate (Ambien) 5 mg PO BEDTIME PRN PRN Reason: Insomnia Last Admin: 01/17/19 19:49 Dose: 5 mg Discontinued Medications Bupivacaine HCl/Dextrose (Marcaine 0.75% Spinal) Confirm Administered Dose 2 ml .ROUTE .STK-MED ONE Stop: 01/15/19 07:48 Cefazolin Sodium (Ancef) Confirm Administered Dose 2 gm .ROUTE .STK-MED ONE Stop: 01/15/19 07:15 Cefazolin Sodium (Ancef) Confirm Administered Dose 2 gm .ROUTE .STK-MED ONE Stop: 01/15/19 07:15 Citric Acid/Sodium Citrate (Bicitra Solution) 30 ml PO ONETIME ONE Stop: 01/15/19 06:01 Last Admin: 01/15/19 07:21 Dose: 30 ml Diphenhydramine HCl (Benadryl) 25 mg IVPUSH Q8H PRN PRN Reason: Itching Last Admin: 01/15/19 12:15 Dose: 25 mg Fentanyl (Sublimaze) Confirm Administered Dose 100 mcg .ROUTE .STK-MED ONE Stop: 01/15/19 08:16 Cefazolin Sodium/Dextrose 2 gm (/ Premix) 50 mls @ 100 mls/hr IV ONETIME ONE Stop: 01/15/19 07:29 Last Admin: 01/15/19 14:40 Dose: Not Given Lactated Ringer's (Ringers, Lactated) 1,000 mls @ 125 mls/hr IV ASDIRECTED [facility] Last Admin: 01/15/19 09:05 Dose: 125 mls/hr Oxytocin/Lactated Ringer's (Pitocin In Lr 10 Units/1,000 Ml) 10 unit in 1,000 mls @ 100 mls/hr IV ASDIRECTED [facility]; Protocol Lactated Ringer's (Ringers, Lactated) Confirm Administered Dose 1,000 mls @ as directed .ROUTE .STK-MED ONE Stop: 01/15/19 07:20 Dextrose/Lactated Ringer's (Dextrose 5%-Lactated Ringers) 1,000 mls @ 125 mls/ hr IV ASDIRECTED [facility] Stop: 01/15/19 17:38 Last Admin: 01/15/19 11:02 Dose: 125 mls/hr Ketorolac Tromethamine (Toradol) Confirm Administered Dose 30 mg .ROUTE .STK- MED ONE Stop: 01/15/19 08:06 Ketorolac Tromethamine (Toradol) 30 mg IVPUSH Q6H [facility] Stop: 01/16/19 02:31 Last Admin: 01/16/19 03:09 Dose: 30 mg Lidocaine HCl (Xylocaine-Mpf 1%) Confirm Administered Dose 5 ml .ROUTE .STK-MED ONE Stop: 01/15/19 07:48 Metoclopramide HCl (Reglan) 10 mg IVPUSH ONETIME ONE Stop: 01/15/19 06:01 Last Admin: 01/15/19 07:20 Dose: 10 mg Morphine Sulfate (Duramorph Pf) Confirm Administered Dose 10 mg .ROUTE .STK-MED ONE Stop: 01/15/19 07:15 Nalbuphine HCl (Nubain) 10 mg IVPUSH Q2H PRN PRN Reason: Pain Oxytocin (Pitocin) Confirm Administered Dose 10 unit .ROUTE .STK-MED ONE Stop: 01/15/19 08:06 Phenylephrine HCl (Goyo-Synephrine) Confirm Administered Dose 10 mg .ROUTE .STK- MED ONE Stop: 01/15/19 07:15 Sodium Chloride (Saline Flush) 10 ml FLUSH ASDIRECTED PRN PRN Reason: Keep Vein Open
[2019-01-18] MEDS: Docusate Sodium 100 MG Cap PO PRN (08:24)
== END 2019-01-18 10:55 | disposition home or self-care (01) | DRG 788 ==
LOC: JD.OB 05:39
PROVIDERS: ADMIT Obstetrics & Gynecology; ATTEND Obstetrics & Gynecology
PROC: 10D00Z1 Extraction of Products of Conception, Low, Open Approach (ICD-10-PCS; principal; 2019-01-15)
DX: O13.4 Gestational [pregnancy-induced] hypertension without significant proteinuria, complicating childbirth (principal); O99.824 Streptococcus B carrier state complicating childbirth; O99.334 Smoking (tobacco) complicating childbirth; F17.210 Nicotine dependence, cigarettes, uncomplicated; R76.8 Other specified abnormal immunological findings in serum; Z3A.37 37 weeks gestation of pregnancy; Z37.0 Single live birth; Z79.899 Other long term (current) drug therapy
CPT/HCPCS: 01961; 36415; 59025; 82565; 84450; 84460; 85025; 85027; 86592; 86850; 86900; 86901; 94762; A9270-GY; J0690; J1200; J1885; J2001; J2270; J2370; J2590; J2765; J3010; J7042; J7120